=== PATIENT | female | born 1935 | race African-American/Black ===

== ENCOUNTER 2018-10-07 12:16 | Inpatient (IN) | payer MEDICARE, MEDICAID ==
[2018-10-07 12:48] LABS: #Lymphocytes 1.1 thou/uL (1.20-3.40); #Monocytes 0.5 thou/uL (0.11-0.59); #Neutrophils 3.3 thou/uL (1.40-6.50); %Basophils 0.5 % (0.0-1.0); %Eosinophils 0.8 % (0.0-10.0); %Lymphocytes 22.1 % (21.0-51.0); %Monocytes 9.4 % (0.0-10.0); %Neutrophils 67.2 % (42.0-75.0); Hemoglobin 10.4 g/dL (12.0-16.0); Mean Corpuscular HGB CONC 32.6 g/dL (32.0-36.0); Mean Corpuscular Hemoglobin 27.3 pg (27.0-31.0); Mean Corpuscular Volume 83.8 fL (78.0-98.0); Mean Platelet Volume 9.8 fL (7.4-10.4); Platelet Count 209 thou/uL (130-400); RBC Distribution Width 14.3 % (11.5-14.5); White Blood Cell (WBC) Count 4.8 thou/uL (4.8-10.8)
--- NOTE | 2018-10-07 13:08 | RAD ---
PORTABLE CHEST: 10/07/2018 PROVIDED CLINICAL HISTORY: Nausea. COMPARISON: 07/06/2014 FINDINGS: The cardiac silhouette appears enlarged, which may be at least partially on the basis of the portable technique. Vascular calcification involves the aortic arch. No focal consolidation, pleural fluid, or pneumothorax apparent. IMPRESSION: No evidence for an acute cardiopulmonary process. POS: JOSE RAFAEL
--- NOTE | 2018-10-07 13:13 | CT ---
CT BRAIN: 10/07/2018 PROVIDED CLINICAL HISTORY: Vertigo. COMPARISON: 10/06/2018 FINDINGS: The ventricular system is unchanged in size and morphology. There is no evidence for intracranial he morrhage or mass effect. The extracranial soft tissues and osseous structures demonstrate an unremar kable CT appearance. IMPRESSION: No evidence for intracranial hemorrhage or mass effect. POS: JOSE RAFAEL
[2018-10-07 13:16] LABS: ALT (SGPT) Less than 7 U/L (8-55); AST (SGOT) 16 U/L (5-34); Alkaline Phosphatase 60 U/L (40-150); Anion Gap 15 mmol/L (10-20); BUN (Urea Nitrogen) 15 mg/dL (9.8-20.1); Bilirubin, Total 0.6 mg/dL (0.2-1.2); CK (CPK) 126 U/L (29-168); Calc. Creatinine Clearance 0 mL/min (70-130); Calcium 9.8 mg/dL (7.8-10.44); Carbon Dioxide 23 mmol/L (23-31); Chloride 105 mmol/L (98-107); Estimated GFR-MDRD 55; Globulin 2.6 g/dL (2.4-3.5); Glucose 107 mg/dL (83-110); Potassium 3.4 mmol/L (3.5-5.1); Protein, Total 6.6 g/dL (6.0-8.3); Sodium 140 mmol/L (136-145)
[2018-10-07] MEDS ORDERED: Ondansetron PF 4 MG/2 ML Vial ONE (13:37)
[2018-10-07 13:49] LABS: Bilirubin Negative (Negative); Blood, Urine Negative (Negative); Clarity Clear (Clear); Glucose, Urine (Dipstick) Normal (Negative); Leukocyte 25 Leu/uL (Negative); Nitrite Negative (Negative); Protein, Urine (Dipstick) Negative (Neg-Trace); RBC/HPF 0-3 HPF (0-3); Squamous Epithelial 0-3 HPF (0-3); Urobilinogen Normal mg/dL (Less than 2)
[2018-10-07 13:56] LABS: Bacteria/HPF None Seen HPF (None Seen)
[2018-10-07] MEDS ORDERED: Furosemide 40 MG/4 ML VIAL ONE (14:46)
[2018-10-07] MEDS ORDERED: Aspirin Chewable 81 MG TAB ONE (14:46)
[2018-10-07 16:03] LABS: Troponin I 0.013 ng/mL (< 0.028)
[2018-10-07] MEDS ORDERED: Ondansetron PF 4 MG/2 ML Vial IVP PRN ×2 (16:49→17:29)
[2018-10-07] MEDS ORDERED: Ondansetron ODT 4 MG TAB SL PRN (16:49)
[2018-10-07] MEDS ORDERED: Ondansetron ODT 4 MG TAB PO PRN (17:29)
[2018-10-07] MEDS ORDERED: Acetaminophen 500 MG TAB PO PRN (17:29)
[2018-10-07 19:05] LABS: Troponin I 0.024 ng/mL (< 0.028)
[2018-10-07] MEDS: Famotidine 20 MG TAB PO SCH (20:40)
--- NOTE | 2018-10-07 22:13 | HP ---
PRIMARY CARE PROVIDER: Gregory West MD. CHIEF COMPLAINT: General weakness and nausea. HISTORY OF PRESENT ILLNESS: This is an 82-year-old female who presented to [facility] complaining of approximate 4-day history of increasing fatigue, generalized weakness with associated nausea. The patient denied any travel history, sick contacts, exposures, or family members with similar symptoms. The patient denied any blood in her stool or hematemesis. The patient denied prominent shortness of breath, but states she is unable to sleep flat on her bed at night. The patient admits to some swelling of the lower extremities, but states this is chronic and uses compression stockings. The patient denied any specific change to her chronic medication regimen and states she has been compliant. The patient denied any dietary indiscretions or recent ingestions. In the emergency room, the patient underwent general evaluation including chest imaging that showed no acute infiltrates. BNP was noted at 544; previously noted 376, 06/20/2015. The patient received IV Lasix, aspirin, and Zofran in the emergency room. The patient was transferred to the telemetry unit for further evaluation. PAST MEDICAL HISTORY: 1. Hypertension. 2. Chronic atrial fibrillation with chronic anticoagulation with Xarelto. 3. Coronary artery disease. 4. Hyperlipidemia. PAST SURGICAL HISTORY: 1. Status post left breast lumpectomy. 2. Status post hysterectomy. CURRENT MEDICATIONS: 1. Xarelto 20 mg p.o. daily. 2. Hydralazine 50 mg p.o. t.i.d. 3. Metoprolol tartrate 25 mg p.o. b.i.d. 4. Simvastatin 20 mg p.o. daily. 5. Amlodipine 10 mg p.o. daily. 6. Calcitriol 0.25 mcg p.o. daily. 7. D3 Dots 2000 units p.o. daily. 8. Brimonidine 0.2% ophthalmic drops. 9. Lumigan 0.01% ophthalmic drops. ALLERGIES: NO KNOWN DRUG ALLERGIES. FAMILY HISTORY: Positive for hypertension. SOCIAL HISTORY: The patient resides in [place], [place]. Retired nurse. No current alcohol, tobacco, or illicit drug use. REVIEW OF SYSTEMS: CONSTITUTIONAL: Negative for weight loss or gain, ability to conduct usual activities. SKIN: Negative for rash, itching. EYES: Negative for double vision, pain. ENT/MOUTH: Negative for nose bleeding, neck stiffness, pain, tenderness. CARDIOVASCULAR: Negative for palpitations, dyspnea on exertion, orthopnea. RESPIRATORY: Negative for shortness of breath, wheezing, cough, hemoptysis, fever or night sweats. GASTROINTESTINAL: Negative for poor appetite, abdominal pain, heartburn, nausea, vomiting, constipation, or diarrhea. GENITOURINARY: Negative for urgency, frequency, dysuria, nocturia. MUSCULOSKELETAL: Negative for pain, swelling. NEUROLOGIC/PSYCHIATRIC: Negative for anxiety, depression. ALLERGY/IMMUNOLOGIC: Negative for skin rash, bleeding tendency. Otherwise negative except as stated per HPI. PHYSICAL EXAMINATION: VITAL SIGNS: On admission, blood pressure 131/57, pulse 56, respiratory rate 17, temperature 98.3 degrees Fahrenheit, O2 saturation 100% on room air. GENERAL APPEARANCE: This is an 82-year-old female, alert and oriented x3, pleasant, smiling, in no acute distress. HEENT: Pupils are equal, round, reactive to light and accommodation. Extraocular muscles are intact. No scleral icterus. No conjunctival injection. Nares are patent. OP is clear. Teeth in good repair. NECK: Supple. No cervical adenopathy. No thyromegaly. No carotid bruits. No JVD appreciated. Cervical spine with full active and passive range of motion. No meningeal signs noted. CHEST: Lungs are clear to auscultation bilaterally. CARDIOVASCULAR: S1, S2 without noted murmur, rub, or gallop. ABDOMEN: Rounded, soft, nontender, and nondistended. Bowel sounds are positive in all 4 quadrants. There is no hepatosplenomegaly. No abdominal bruits. No rebound or guarding appreciated. EXTREMITIES: Warm and dry with fair turgor. Mild edema to the ankle region bilaterally. Compression stockings noted. Pulses palpable distally at the dorsalis pedis, posterior tibial, and popliteal arteries bilaterally. Capillary refill less than 2 seconds. NEUROLOGIC: Cranial nerves 2 through 12 are grossly intact. No focal or lateralizing signs appreciated. PERTINENT LABORATORY AND X-RAY FINDINGS: Sodium 140, potassium 3.4, chloride 105, CO2 of 23, BUN 15, creatinine 1.14, estimated GFR 55, glucose 107, calcium 9.8. LFTs within normal limits. Total CK 126. Troponin I negative x2. BNP 544; previously noted 376, 06/20/2015. Urinalysis negative. CT of the brain without contrast dated 10/07/2018, showed no acute intracranial process. Portable chest x-ray dated 10/07/2018, showed no acute cardiopulmonary process. EKG dated 10/07/2018, by my interpretation shows atrial fibrillation with slow ventricular response with heart rates in the 40s. Attenuated R-waves noted in the precordial leads. Left axis deviation. T-wave inversion in leads III and F. ASSESSMENT AND PLAN: 1. New-onset congestive heart failure. The patient will be admitted to the telemetry unit. Exact type unknown. Check 2D transthoracic echocardiogram. Continue Lasix 20 mg IV b.i.d. Consult Cardiology Service in the a.m. Check TSH and magnesium level. Continue telemetry monitoring. 2. Chronic kidney disease, stage 3. Avoid nephrotoxic agents and limit contrast exposure. Serial creatinine monitoring. 3. Chronic atrial fibrillation. Rate controlled currently. We will continue telemetry monitoring. Bradycardic currently. Check TSH and magnesium level in the a.m. 4. Chronic anticoagulation. Resume Xarelto 20 mg daily. 5. Hypertension. Resume home antihypertensive regimen and monitor clinical response. 6. Prophylaxis. Hold SCDs due to compression stockings in place. Pepcid 20 mg p.o. b.i.d. 7. Code status is full. Surrogate medical decision maker is Janie Karimi. Job ID: [id number]
[2018-10-08 05:11] LABS: Anion Gap 11 mmol/L (10-20); BUN (Urea Nitrogen) 15 mg/dL (9.8-20.1); Calc. Creatinine Clearance 56 mL/min (70-130); Calcium 9.3 mg/dL (7.8-10.44); Carbon Dioxide 26 mmol/L (23-31); Chloride 104 mmol/L (98-107); Estimated GFR-MDRD 56; Glucose 85 mg/dL (83-110); Magnesium 1.7 mg/dL (1.6-2.6); Potassium 3.2 mmol/L (3.5-5.1); Sodium 138 mmol/L (136-145)
[2018-10-08] MEDS: Furosemide 20 MG/2 ML VIAL SLOW IVP SCH ×2 (05:31→14:24)
[2018-10-08 06:11] LABS: Eosinophils 2 % (0-10); Hemoglobin 9.6 g/dL (12.0-16.0); Lymphocytes 29 % (21-51); MDiff Complete? YES; Mean Corpuscular HGB CONC 32.3 g/dL (32.0-36.0); Mean Corpuscular Hemoglobin 26.9 pg (27.0-31.0); Mean Corpuscular Volume 83.4 fL (78.0-98.0); Mean Platelet Volume 9.7 fL (7.4-10.4); Monocytes 10 % (0-10); Neutrophil 58 % (42-75); Platelet Count 183 thou/uL (130-400); Platelet Morphology Comment Appears Adequate; RBC Distribution Width 14.3 % (11.5-14.5); Red Blood Cell (RBC) Count 3.58 mill/uL (4.20-5.40); White Blood Cell (WBC) Count 4.1 thou/uL (4.8-10.8)
[2018-10-08] MEDS: Famotidine 20 MG TAB PO SCH ×2 (08:37→20:52)
[2018-10-08] MEDS: Rivaroxaban 10 MG TAB PO SCH (08:37)
[2018-10-08] MEDS: hydrALAZINE 20 MG/ML VIAL SLOW IVP PRN ×2 (08:37→15:39)
[2018-10-08] MEDS ORDERED: Prevnar 13-Val Conj/PF 0.5 ML SYRINGE IM ONE (09:00)
[2018-10-08] MEDS ORDERED: Aspirin 81 mg Enteric Coated Tablet PO SCH (09:00)
[2018-10-08] MEDS ORDERED: Potassium Chloride 20 MEQ TAB PO SCH (13:45)
--- NOTE | 2018-10-08 16:03 | PDOC.HOSPP ---
- Subjective Subjective: f/u for new-onset CHF with EF 55-60%% receiving Lasix IV. No SOB and no O2 supplementation. Feels ok overall. - Objective Vital Signs & Weight: Vital Signs (12 hours) Temp Pulse Pulse Pulse Resp BP BP 10/08/18 15:49 98.5 F 65 20 10/08/18 15:39 71 181/78 H 10/08/18 14:47 52 L 77 131/61 10/08/18 11:28 98.1 F 59 L 20 10/08/18 08:37 47 L 184/77 H 10/08/18 07:30 10/08/18 07:15 98.0 F 47 L 20 10/08/18 04:09 97.5 F L 44 L 20 BP BP BP Pulse Ox Pulse Ox 10/08/18 15:49 181/78 H 98 10/08/18 15:39 10/08/18 14:47 178/76 H 98 10/08/18 11:28 135/64 98 10/08/18 08:37 10/08/18 07:30 99 10/08/18 07:15 184/77 H 99 10/08/18 04:09 148/68 H 98 Weight Weight 203 lb 3.2 oz I&O: 10/07/18 10/08/18 10/09/18 06:59 06:59 06:59 Intake Total 600 Balance 600 Result Diagrams: 10/08/18 04:33 10/08/18 04:33 Additional Labs: Laboratory Tests 10/07/18 10/08/18 10/08/18 12:31 04:33 04:33 Magnesium 1.7 B-Natriuretic Peptide 544.4 H TSH 3rd Generation 1.5253 10/08/18 04:33 Magnesium B-Natriuretic Peptide 390.6 H TSH 3rd Generation Radiology Reviewed by me: Yes (2D echo - EF 55-60%, LAE, mod TR) EKG Reviewed by me: Yes (Tele - A-fib in 60's) ROS - Review of Systems All systems: All other ROS were reviewed and found negative. - Medication Medications: Active Medications Generic Name Dose Route Start Last Admin Trade Name Freq PRN Reason Stop Dose Admin Famotidine 20 mg 10/07/18 21:00 10/08/18 08:37 Pepcid PO 20 mg BID PA Administration Furosemide 20 mg 10/08/18 06:00 10/08/18 14:24 Lasix SLOW IVP 20 mg 0600,1400 PA Administration Hydralazine HCl 10 mg 10/07/18 17:29 10/08/18 15:39 Apresoline SLOW IVP 10 mg Q4H PRN Administration SBP > 180 and HR < 70 Potassium Chloride 40 meq 10/08/18 13:45 10/08/18 14:24 K-Dur PO 10/08/18 17:00 40 meq NOW PA Administration Rivaroxaban 20 mg 10/08/18 09:00 10/08/18 08:37 Xarelto PO 20 mg DAILY PA Administration - Exam NAD, awake alert Eye: PERRL, anicteric sclera ENT: normocephalic atraumatic, no oropharyngeal lesions Neck: supple, symmetric, no JVD, no Thyromegaly Heart: no gallops, no rubs, normal peripheral pulses, irregular Respiratory: CTAB, no wheezes, no rales, no ronchi Gastrointestinal: soft, non-tender, non-distended, normal bowel sounds Extremities: no cyanosis, no clubbing, no edema Skin: normal turgor Neurological: CN's grossly intact, no focal deficits, no new deficit Musculoskeletal: normal tone, normal strength Psychiatric: normal behavior, A&O x 3 Hosp A/P (1) Acute diastolic CHF (congestive heart failure) Code(s): I50.31 - ACUTE DIASTOLIC (CONGESTIVE) HEART FAILURE Status: Acute Plan: Continue Lasix IV another 24h then convert to po, daily weight, I/O's, EF 55-60% (2) Chronic atrial fibrillation Code(s): I48.2 - CHRONIC ATRIAL FIBRILLATION Status: Chronic Plan: Rate-controlled, bradycardic, hold Metoprolol (3) CKD (chronic kidney disease), stage III Code(s): N18.3 - CHRONIC KIDNEY DISEASE, STAGE 3 (MODERATE) Status: Chronic Plan: Stable, avoid nephrotoxic meds and limit contrast exposure (4) Hypertension Code(s): I10 - ESSENTIAL (PRIMARY) HYPERTENSION Status: Chronic Qualifiers: Hypertension type: essential hypertension Qualified Code(s): I10 - Essential (primary) hypertension Plan: Labile, resume home BP regimen, PRN Hydralazine, titrate for optimal response (5) Chronic anticoagulation Code(s): Z79.01 - DETENTION (CURRENT) USE OF ANTICOAGULANTS Status: Chronic Plan: Continue Xarelto - Plan plan discussed w/ family, out of bed/ambulate, DVT proph w/SCDs Stable currently Continue Lasix 20mg IV BID another 24h then convert to po Resume home BP regimen Hold Metoprolol KCL replacement AM lab: BMP Likely home in 24h
[2018-10-08] MEDS: hydrALAZINE 25 MG TAB PO SCH (20:52)
[2018-10-08] MEDS ORDERED: Latanoprost 0.005% Ophth Soln 2.5 ml Bottle EA EYE SCH (21:00)
[2018-10-08] MEDS ORDERED: Atorvastatin Calcium 10 MG TAB PO SCH (21:00)
--- NOTE | 2018-10-08 21:22 | CON ---
DATE OF CONSULTATION: PRIMARY CHEMICAL PUMPER: Dr. Rom Durham. REASON FOR CONSULTATION: Atrial fibrillation with a slow ventricular response and diastolic congestive heart failure. HISTORY OF PRESENT ILLNESS: Ms. Finnegan is a delightful 82-year-old woman. She was brought to the emergency room yesterday by her daughter after the patient complained of progressive dizziness and lightheadedness and she was found to have atrial fibrillation with a slow rate. The patient reports that she has had atrial fibrillation for several years. She has been maintained on metoprolol and the dose has been reduced in the past. However, now, heart rates in the 40s and the patient was admitted for observation. The patient did not have syncope, did not have near syncope. She had no chest pain or pressure. She did have peripheral edema, but since she has been in the hospital that is improving. MEDICATIONS: Prior to admission, she was taking; 1. Metoprolol tartrate 25 mg twice a day. 2. Amlodipine 10 mg a day. 3. Simvastatin 20 mg. 4. Xarelto 20 mg a day. ALLERGIES: NONE KNOWN. SOCIAL HISTORY: No alcohol or tobacco. Her daughter is in the room. Her daughter is informed about Ms. Finnegan's health issues and is very supportive of her. REVIEW OF SYSTEMS: CONSTITUTIONAL: Positive for weakness and fatigue. HEENT: Vision; no changes. Hearing; no changes. PULMONARY: No cough or wheezing. GASTROINTESTINAL: No nausea, vomiting, or diarrhea. SKIN: No rashes. NEUROLOGIC: No unilateral weakness or numbness. PSYCHIATRIC: No unusual depression or anxiety. HEMATOLOGIC: No unusual bruising. GENITOURINARY: No burning with urination. PHYSICAL EXAMINATION: GENERAL: This is a delightful elderly woman, in no distress. VITAL SIGNS: Blood pressure 135/64; and pulse in the low 50s, it is irregularly irregular. HEENT: Eyes; sclerae nonicteric. Mouth; mucous membranes moist. NECK: Supple. No lymphadenopathy. LUNGS: Clear. CARDIAC: Irregularly irregular. There is a 3/6 holosystolic murmur, loudest at the left mid sternal border. No diastolic murmur. No S3. ABDOMEN: Soft and nontender. No hepatosplenomegaly. EXTREMITIES: Warm and dry. No clubbing or cyanosis. There is [id number] edema. PERTINENT LABORATORY DATA: Her hemoglobin is 9.6. Potassium is 3.2. BNP was 544, now it is 390. Troponin 0.024, in the negative range. Reviewing the previous cardiac catheterization report, the patient did undergo cardiac catheterization by Dr. Durham on February 23, 2016, and normal coronary arteries. Echocardiogram has revealed ejection fraction of 55% to 60%. She has moderate concentric left ventricular hypertrophy. Mild mitral regurgitation, moderate tricuspid insufficiency with elevated pulmonary artery pressure. EKG revealed atrial fibrillation with a slow ventricular response in the mid 40s yesterday, now it is in the mid 50s. ASSESSMENT: 1. Atrial fibrillation with a slow ventricular response. It is chronic atrial fibrillation. 2. Heart rates increasing to some degree off metoprolol. 3. Diastolic congestive heart failure. PLAN: 1. She will be monitored off metoprolol, but tomorrow it will be 48 hours after the dose. Therefore, there will not be much beta ag left. Then 72 hours, we should really be able to see what her heart rate will be. 2. Continue Xarelto. 3. If she continues to be bradycardic, consideration for biventricular pacing. The patient will be seen by Dr. Durham tomorrow. Job ID: [id number]
[2018-10-09 05:17] LABS: Anion Gap 13 mmol/L (10-20); BUN (Urea Nitrogen) 20 mg/dL (9.8-20.1); Calc. Creatinine Clearance 47 mL/min (70-130); Calcium 9.5 mg/dL (7.8-10.44); Carbon Dioxide 28 mmol/L (23-31); Chloride 101 mmol/L (98-107); Estimated GFR-MDRD 44; Glucose 87 mg/dL (83-110); Potassium 3.5 mmol/L (3.5-5.1); Sodium 138 mmol/L (136-145)
[2018-10-09] MEDS: Brimonidine Tartrate 0.2% Ophth Soln 5 ml Bottle EA EYE SCH ×2 (06:11→10:22)
[2018-10-09] MEDS: Furosemide 20 MG/2 ML VIAL SLOW IVP SCH (06:11)
[2018-10-09] MEDS ORDERED: Potassium Chloride 20 MEQ TAB PO SCH (08:00)
[2018-10-09] MEDS ORDERED: Calcitriol 0.25 MCG CAP PO SCH (09:00)
[2018-10-09] MEDS ORDERED: Amlodipine 10 MG TAB PO SCH (09:00)
[2018-10-09] MEDS: hydrALAZINE 25 MG TAB PO SCH ×2 (10:20→16:11)
[2018-10-09] MEDS: Famotidine 20 MG TAB PO SCH (10:21)
[2018-10-09] MEDS: Rivaroxaban 10 MG TAB PO SCH (10:21)
--- NOTE | 2018-10-09 12:42 | PDOC.CTH ---
Cardiology Progress Note - Subjective Breathing much better. HR stable in the 60's to 70's. - Objective Vital Signs Temp Pulse Resp BP Pulse Ox 10/09/18 10:22 66 10/09/18 10:20 66 10/09/18 08:15 98.5 F 91 20 162/72 H 100 10/09/18 04:00 98.7 F 75 18 166/74 H 96 Weight 197 lb 6 oz 10/08/18 10/09/18 10/10/18 06:59 06:59 06:59 Intake Total 900 Balance 900 - Physical Examination General/Neuro: alert & oriented x3, NAD Neck: no JVD present Lungs: CTA, unlabored respirations Heart: RRR Abdomen: NT/ND Extremities: + edema B (1+) - Telemetry Telemetry Rhythm: Afib HR 70's. - Labs Result Diagrams: 10/08/18 04:33 10/09/18 04:18 Troponin/CKMB Troponin I 0.024 ng/mL (< 0.028) 10/07/18 18:33 - Assessment/Plan 1. Afib SVR, HR 30's. 2. 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 Acute on chronic diastolic CHF PLAN: - HR stable off BB. Will stop indefinitely. - One more dose IV lkasix at 2pm today and may be discharged home later this afternoon. - Follow up in the office in 1 month with a [employer] monitor 6 days prior to visit.
[2018-10-09 14:07] VITALS: BMI 31.8
[2018-10-09 16:57] VITALS: BP 133/69; TEMP 97.7
--- NOTE | 2018-10-10 04:12 | DIS ---
DATE OF ADMISSION: 10/07/2018 DATE OF DISCHARGE: 10/09/2018 DISCHARGE DIAGNOSES: 1. Acute diastolic congestive heart failure with ejection fraction of 55% to 60%. 2. Chronic atrial fibrillation with slow ventricular response secondary to metoprolol. 3. Chronic kidney disease stage 3, stable. 4. Hypertension, stable. 5. Chronic anticoagulation with Xarelto. 6. Hypokalemia, resolving. CONSULTATIONS: Dr. Jose Sal and Dr. Durham with Cardiology Service. PERTINENT LABORATORY AND X-RAY FINDINGS: Potassium ranged between 3.2 to 3.5. Creatinine ranged between 1.13 to 1.45. Estimated GFR ranged between 44 to 56. BNP ranged between 391 to 544. TSH 1.53. CBC showed a hemoglobin ranged between 9.[address] of the brain without contrast dated 10/07/2018, showed no acute intracranial process. Portable chest x-ray dated 10/07/2018, showed no acute cardiopulmonary process. 2D transthoracic echocardiogram dated 10/08/2018, showed ejection fraction of 55% to 60%. Moderate concentric left ventricular hypertrophy. Moderate left atrial enlargement. Moderate tricuspid valve regurgitation. HOSPITAL COURSE: The patient was initially admitted to the telemetry unit after presenting with generalized weakness and nausea. The patient underwent extensive evaluation with metabolic screening showing evidence of elevated BNP in the 500 range. The patient was treated for new onset congestive heart failure exacerbation with 2D transthoracic echocardiogram confirming evidence of diastolic dysfunction. The patient received IV Lasix 20 mg b.i.d. with overall symptomatic improvement in less than 24 hours. The patient was also noted with bradycardia in the context of metoprolol with heart rates dipping into the 30s to 40s. The patient was discontinued on metoprolol and monitored for clinical response. The patient's overall heart rate trend improved into the 60s to 70s after discontinuation of beta-ag therapy. Current recommendations are to discontinue metoprolol and monitor clinically for hypertension and heart rate elevations. Overall, the patient did remain clinically stable during the hospital course, tolerating regular oral intake with stable vital signs. I have examined the patient at time of discharge and discussed followup instructions. The patient verbalized understanding and agreement, ready for discharge on 10/09/2018. DISCHARGE MEDICATIONS: 1. Amlodipine 10 mg p.o. daily. 2. Lumigan 0.01% one drop to each eye at bedtime. 3. Alphagan 0.2% one drop to each eye b.i.d. 4. Calcitriol 0.25 mcg p.o. daily. 5. Vitamin D3 of 2000 units p.o. daily. 6. Hydralazine 50 mg p.o. t.i.d. 7. Xarelto 20 mg p.o. daily. 8. Zocor 20 mg p.o. at bedtime. 9. Lasix 20 mg p.o. daily. 10. K-Dur 20 mEq p.o. daily. FOLLOWUP: The patient may follow up with her primary care provider, Dr. Gregory West on 10/16/2018, at 3:45 pm. The patient will follow up with Dr. Durham on 11/20/2018, at 1:15 pm. CONDITION ON DISCHARGE: Stable. ACTIVITY: Ad-pita. DIET: Heart healthy. CODE STATUS: Full. DISPOSITION: Home on 10/09/2018. TIME SPENT: Total time preparing and coordinating discharge, 32 minutes. Job ID: [id number]
== END 2018-10-09 18:35 | disposition home or self-care (01) | DRG 291 ==
LOC: ERS 12:16 → 2NO 15:08
PROVIDERS: ADMIT Family Medicine; ATTEND Family Medicine
DX: I13.0 Hypertensive heart and chronic kidney disease with heart failure and stage 1 through stage 4 chronic kidney disease, or unspecified chronic kidney disease (principal); I50.33 Acute on chronic diastolic (congestive) heart failure; I48.2 Chronic atrial fibrillation; I25.10 Atherosclerotic heart disease of native coronary artery without angina pectoris; E78.5 Hyperlipidemia, unspecified; Z90.710 Acquired absence of both cervix and uterus; Z79.01 Long term (current) use of anticoagulants; Z79.899 Other long term (current) drug therapy
CPT/HCPCS: 36415; 36416; 70450; 71045; 80048; 80053; 81003; 82550; 83735; 83880; 84443; 84484; 85007; 85025; 85027; 90471; 90670; 93005; 93306; 93798; 96374; 96375; G0009; J0360; J1940; J2405

== ENCOUNTER 2019-11-08 20:30 | Emergency (ER) | payer MEDICARE, MEDICAID ==
--- NOTE | 2019-11-08 21:29 | RAD ---
Exam: Chest one view HISTORY:Altered mental status. Generalized weakness. Comparison: 10/07/2018 FINDINGS: Cardiac silhouette:Cardiomegaly. Aorta: Atherosclerosis Pulmonary vessels: Normal Costophrenic angles: Clear LUNGS: No masses or consolidation. Pneumothorax: None Osseous abnormalities: None IMPRESSION: 1. Atherosclerosis 2. Cardiomegaly. No evidence of congestive heart failure. 3. No acute cardiopulmonary process.
[2019-11-08 21:38] LABS: #Basophils 0.1 thou/uL (0.0-0.2); #Eosinphils 0.1 thou/uL (0.0-0.7); #Monocytes 0.4 thou/uL (0.11-0.59); #Neutrophils 2.6 thou/uL (1.40-6.50); %Basophils 1.5 % (0.0-1.0); %Eosinophils 1.4 % (0.0-10.0); %Lymphocytes 23.8 % (21.0-51.0); %Monocytes 8.9 % (0.0-10.0); %Neutrophils 64.4 % (42.0-75.0); Hemoglobin 11.7 g/dL (12.0-16.0); Mean Corpuscular HGB CONC 32.3 g/dL (32.0-36.0); Mean Corpuscular Hemoglobin 28.5 pg (27.0-31.0); Mean Corpuscular Volume 88.2 fL (78.0-98.0); Mean Platelet Volume 11.1 fL (7.4-10.4); Platelet Count 136 thou/uL (130-400); RBC Distribution Width 13.9 % (11.5-14.5); Red Blood Cell (RBC) Count 4.12 mill/uL (4.20-5.40); White Blood Cell (WBC) Count 4.1 thou/uL (4.8-10.8)
[2019-11-08 21:56] LABS: Bilirubin Negative (Negative); Blood, Urine Negative (Negative); Clarity Clear (Clear); Glucose, Urine (Dipstick) Normal (Negative); Ketone, Urine Negative (Negative); Leukocyte Negative Leu/uL (Negative); Nitrite Negative (Negative); Protein, Urine (Dipstick) Negative (Neg-Trace); Specific Gravity, Urine 1.006 (1.002-1.036); Urobilinogen Normal mg/dL (Less than 2)
[2019-11-08 22:01] LABS: ALT (SGPT) 8 U/L (8-55); AST (SGOT) 20 U/L (5-34); Albumin 4.3 g/dL (3.4-4.8); Alkaline Phosphatase 51 U/L (40-110); Anion Gap 15 mmol/L (10-20); BUN (Urea Nitrogen) 14 mg/dL (9.8-20.1); Bilirubin, Total 0.6 mg/dL (0.2-1.2); Calc. Creatinine Clearance 0 mL/min (70-130); Calcium 9.1 mg/dL (7.8-10.44); Carbon Dioxide 20 mmol/L (23-31); Chloride 107 mmol/L (98-107); Estimated GFR-MDRD 45; Globulin 2.5 g/dL (2.4-3.5); Glucose 97 mg/dL (83-110); Lipase 12 U/L (8-78); Potassium 3.8 mmol/L (3.5-5.1); Protein, Total 6.8 g/dL (6.0-8.3); Sodium 138 mmol/L (136-145)
== END 2019-11-08 22:17 | disposition home or self-care (01) ==
LOC: ERS 20:30
DX: R53.1 Weakness (principal); I25.10 Atherosclerotic heart disease of native coronary artery without angina pectoris; I48.91 Unspecified atrial fibrillation; I10 Essential (primary) hypertension; E78.00 Pure hypercholesterolemia, unspecified; Z79.01 Long term (current) use of anticoagulants; Z79.899 Other long term (current) drug therapy
CPT/HCPCS: 36415; 71045; 80053; 81003; 83690; 84484; 85025; 93005

== ENCOUNTER 2023-04-12 07:28 | Outpatient (CLI) | payer MEDICARE, MEDICAID | END 2023-04-12 07:29 | disposition home or self-care (01) | LOC: ULT 07:28 | PROVIDERS: ATTEND Family Medicine | DX: R93.422 Abnormal radiologic findings on diagnostic imaging of left kidney (principal); N28.1 Cyst of kidney, acquired | CPT/HCPCS: 76700 ==

== ENCOUNTER 2024-02-19 23:12 | Inpatient (IN) | payer MEDICARE, MEDICAID ==
[2024-02-20] MEDS ORDERED: Acetaminophen 325 MG TAB PO PRN
[2024-02-20] MEDS ORDERED: Ondansetron PF 4 MG/2 ML Vial IVP PRN
[2024-02-20 00:19] VITALS: BMI 26.9
[2024-02-20 01:29] LABS: Troponin I 0.027 ng/mL (< 0.028)
[2024-02-20 04:43] LABS: #Basophils Less than 0.03 10x3/uL (0.0-0.2); %Basophils 0.8 % (0.0-1.0); %Lymphocytes 40.8 % (21.0-51.0); %Monocytes 12.2 % (0.0-10.0); %Neutrophils 44.2 % (42.0-75.0); Hematocrit 27.9 % (36.0-47.0); Hemoglobin 9.4 g/dL (12.0-16.0); Mean Corpuscular HGB CONC 33.7 g/dL (32.0-36.0); Mean Corpuscular Hemoglobin 28.6 pg (27.0-31.0); Mean Corpuscular Volume 84.8 fL (78.0-98.0); Mean Platelet Volume 12.1 fL (7.4-10.4); Platelet Count 117 10x3/uL (130-400); RBC Distribution Width 15.2 % (11.5-14.5); Red Blood Cell (RBC) Count 3.29 mill/uL (4.20-5.40)
[2024-02-20 04:49] LABS: PTT 40.5 sec (22.9-36.1)
[2024-02-20 04:50] LABS: INR-International Normal Ratio 1.5; Prothrombin Time 17.8 sec (12.0-14.7)
[2024-02-20 05:01] LABS: Anion Gap 10 mmol/L (10-20); BUN (Urea Nitrogen) 11 mg/dL (9.8-20.1); Calc. Creatinine Clearance 40 mL/min (70-130); Carbon Dioxide 26 mmol/L (23-31); Cardiac Risk 1.6 (Less than 4.5); Chloride 109 mmol/L (98-107); Cholesterol 135 mg/dl (< 200 Desired); Estimated GFR 45; Glucose 85 mg/dL (83-110); HDL Cholesterol 86 mg/dL (>60 Neg Risk); LDL Cholesterol, Calculated 44 mg/dL; Magnesium 2.2 mg/dL (1.6-2.6); Potassium 3.4 mmol/L (3.5-5.1); Sodium 142 mmol/L (136-145); Triglycerides 27 mg/dL (Less than 150)
[2024-02-20 05:49] LABS: Troponin I 0.039 ng/mL (< 0.028)
[2024-02-20 07:56] LABS: Troponin I 0.037 ng/mL (< 0.028)
[2024-02-20] MEDS: Potassium Chloride 20 MEQ TAB PO SCH (08:00)
[2024-02-20] MEDS: Ferrous Sulfate 325 MG TAB PO SCH (08:01)
[2024-02-20] MEDS: Amlodipine 10 MG TAB PO SCH (08:01)
[2024-02-20] MEDS: Magnesium Oxide 250 MG TAB PO SCH (08:01)
[2024-02-20] MEDS: Cholecalciferol (Vitamin D3) 400 UNITS TAB PO SCH (08:01)
[2024-02-20] MEDS: Calcitriol 0.25 MCG CAP PO SCH (08:01)
[2024-02-20] MEDS: Lactulose 20 GM (30 mL) UDCUP PO SCH (08:03)
[2024-02-20] MEDS: Brimonidine Tartrate 0.2% Ophth Soln 5 ml Bottle EA EYE SCH (09:00)
[2024-02-20] MEDS: Nitroglycerin 0.4 MG TAB (25 Tab Bottle) SL PRN (16:02)
[2024-02-20] MEDS: Atorvastatin Calcium 10 MG TAB PO SCH (20:32)
[2024-02-20] MEDS: Latanoprost 0.005% Ophth Soln 2.5 ml Bottle EA EYE SCH (20:34)
[2024-02-21 04:24] LABS: ALT (SGPT) 7 U/L (8-55); AST (SGOT) 17 U/L (5-34); Albumin 3.1 g/dL (3.4-4.8); Alkaline Phosphatase 42 U/L (40-110); Anion Gap 11 mmol/L (10-20); BUN (Urea Nitrogen) 16 mg/dL (9.8-20.1); Bilirubin, Total 0.3 mg/dL (0.2-1.2); Calc. Creatinine Clearance 33 mL/min (70-130); Calcium 9.1 mg/dL (7.8-10.44); Carbon Dioxide 24 mmol/L (23-31); Chloride 108 mmol/L (98-107); Estimated GFR 35; Globulin 2.5 g/dL (2.4-3.5); Glucose 88 mg/dL (83-110); Magnesium 2.1 mg/dL (1.6-2.6); Potassium 4.1 mmol/L (3.5-5.1); Protein, Total 5.6 g/dL (5.8-8.1); Sodium 139 mmol/L (136-145)
[2024-02-21 04:41] LABS: #Basophils Less than 0.03 10x3/uL (0.0-0.2); %Basophils 0.4 % (0.0-1.0); %Eosinophils 1.8 % (0.0-10.0); %Lymphocytes 41.2 % (21.0-51.0); %Monocytes 13.4 % (0.0-10.0); %Neutrophils 43.2 % (42.0-75.0); Hematocrit 28.5 % (36.0-47.0); Hemoglobin 9.3 g/dL (12.0-16.0); Mean Corpuscular HGB CONC 32.6 g/dL (32.0-36.0); Mean Corpuscular Hemoglobin 28.4 pg (27.0-31.0); Mean Corpuscular Volume 86.9 fL (78.0-98.0); Platelet Count 123 10x3/uL (130-400); RBC Distribution Width 15.2 % (11.5-14.5); Red Blood Cell (RBC) Count 3.28 mill/uL (4.20-5.40)
[2024-02-22] MEDS: hydrALAZINE 25 MG TAB PO SCH (09:24)
[2024-02-22] MEDS: Sodium Chloride 0.9% 500 ML IV SCH (11:29)
[2024-02-22] MEDS ORDERED: Gentamicin 80 MG/2 ML VIAL ONE (14:07)
[2024-02-22] MEDS ORDERED: CEFAZOLIN 2 GM VIAL ONE (14:07)
[2024-02-22] MEDS ORDERED: fentaNYL 50 mcg/mL 1 mL Vial ONE ×2 (15:03→17:38)
[2024-02-22] MEDS ORDERED: Glycopyrrolate 0.2 MG/ML 5 ML SYRINGE ONE (15:54)
[2024-02-22] MEDS ORDERED: Dexamethasone 20 MG/5 ML VIAL ONE (15:54)
[2024-02-22] MEDS ORDERED: Lidocaine 1% PF 5 ML VIAL ONE (15:54)
[2024-02-22] MEDS ORDERED: PROPOFOL 200 MG/20 ML VIAL ONE (15:54)
[2024-02-22] MEDS ORDERED: Acetaminophen/Codeine 30-300mg Tablet PO PRN (17:10)
[2024-02-22] MEDS ORDERED: hydrALAZINE 20 MG/ML VIAL ONE (17:37)
[2024-02-22] MEDS: hydrALAZINE 20 MG/ML VIAL SLOW IVP PRN (17:40)
[2024-02-22] MEDS: Cephalexin 250 MG CAP PO SCH (20:39)
[2024-02-23 04:43] LABS: #Basophils Less than 0.03 10x3/uL (0.0-0.2); #Eosinophils Less than 0.03 10x3/uL (0.0-0.7); %Basophils 0.6 % (0.0-1.0); %Lymphocytes 14.9 % (21.0-51.0); %Monocytes 1.2 % (0.0-10.0); Hematocrit 34.8 % (36.0-47.0); Hemoglobin 11.4 g/dL (12.0-16.0); Mean Corpuscular HGB CONC 32.8 g/dL (32.0-36.0); Mean Corpuscular Hemoglobin 28.1 pg (27.0-31.0); Mean Corpuscular Volume 85.7 fL (78.0-98.0); Mean Platelet Volume 11.8 fL (7.4-10.4); Platelet Count 140 10x3/uL (130-400); Red Blood Cell (RBC) Count 4.06 mill/uL (4.20-5.40)
[2024-02-23 05:01] LABS: Anion Gap 12 mmol/L (10-20); BUN (Urea Nitrogen) 14 mg/dL (9.8-20.1); Calc. Creatinine Clearance 36 mL/min (70-130); Calcium 8.9 mg/dL (7.8-10.44); Carbon Dioxide 23 mmol/L (23-31); Chloride 105 mmol/L (98-107); Estimated GFR 39; Glucose 169 mg/dL (83-110); Potassium 4.1 mmol/L (3.5-5.1); Sodium 136 mmol/L (136-145)
[2024-02-23 13:55] VITALS: BP 121/60
[2024-02-23 15:31] VITALS: TEMP 98.4
== END 2024-02-23 15:37 | disposition home or self-care (01) | DRG 242 ==
LOC: PCU 23:27 → OBSVTOIN 02-20 14:46
PROVIDERS: ADMIT Internal Medicine; ATTEND Internal Medicine
PROC: 0JH606Z Insertion of Pacemaker, Dual Chamber into Chest Subcutaneous Tissue and Fascia, Open Approach (ICD-10-PCS; principal; 2024-02-22)
PROC: 02HL3JZ Insertion of Pacemaker Lead into Left Ventricle, Percutaneous Approach (ICD-10-PCS; 2024-02-22)
DX: R00.1 Bradycardia, unspecified (principal); I21.A1 Myocardial infarction type 2; I13.0 Hypertensive heart and chronic kidney disease with heart failure and stage 1 through stage 4 chronic kidney disease, or unspecified chronic kidney disease; I50.32 Chronic diastolic (congestive) heart failure; I48.20 Chronic atrial fibrillation, unspecified; Z96.651 Presence of right artificial knee joint; I25.10 Atherosclerotic heart disease of native coronary artery without angina pectoris; D64.9 Anemia, unspecified; I34.0 Nonrheumatic mitral (valve) insufficiency; I07.1 Rheumatic tricuspid insufficiency; E87.6 Hypokalemia; N18.32 Chronic kidney disease, stage 3b; I48.4 Atypical atrial flutter; Z90.710 Acquired absence of both cervix and uterus; Z79.01 Long term (current) use of anticoagulants; Z79.899 Other long term (current) drug therapy
CPT/HCPCS: 33207; 36415; 71045; 80048; 80053; 80061; 83735; 83880; 84443; 84484; 85025; 85610; 85730; 93005; 93010; 93306; 93798; 94760; C1769; C1786; C1898; G0378; J0360; J1100; J1580; J2704; J3010

== ENCOUNTER 2025-01-18 08:47 | Outpatient (CLI) | payer MEDICARE | END 2025-01-18 08:48 | disposition home or self-care (01) | LOC: BICMAMMO 08:47 | PROVIDERS: ATTEND Internal Medicine Hematology & Oncology | DX: C50.111 Malignant neoplasm of central portion of right female breast (principal); Z79.811 Long term (current) use of aromatase inhibitors | CPT/HCPCS: 77080 ==